=== PATIENT | female | born 1945 | race Caucasian/White ===

== ENCOUNTER 2017-11-17 17:21 | Inpatient (IN) | payer MEDICARE ==
--- NOTE | 2017-11-17 18:22 | RAD ---
LEFT ANKLE RADIOGRAPHS THREE VIEWS 11/17/17 PROVIDED CLINICAL HISTORY: Left ankle pain status post injury. FINDINGS: There is a displaced Macedo B distal fibular fracture with lateral displacement of the distal fracture fragment by about one shafts width. There is disruption of the ankle mortise with lateral displaceme nt of the talus with respect to the tibia. Avulsion fracture presumably from the medial malleolus is noted. There is no evidence for a posterior malleolar fracture. IMPRESSION: Distal fibular and medial malleolar fractures with associated disruption of the ankle mortise as abov e. POS: [facility]
[2017-11-17] MEDS ORDERED: Diprivan 20 ML ONE (18:50)
--- NOTE | 2017-11-17 20:12 | RAD ---
TWO VIEWS OF THE LEFT ANKLE 11/17/17 PROVIDED CLINICAL HISTORY: Post reduction. FINDINGS/IMPRESSION: Comparison is made with the examination performed earlier the same date. Interval placement of psychologist engineering ior splint material. The degree of medial ankle mortise widening is less conspicuous than on prior st udy. Additional significant interval change with respect to prior is not apparent. POS: [facility]
[2017-11-17 20:32] LABS: #Basophils 0.1 thou/uL (0.0-0.2); #Eosinphils 0.1 thou/uL (0.0-0.7); #Lymphocytes 1.6 thou/uL (1.20-3.40); #Monocytes 0.8 thou/uL (0.11-0.59); #Neutrophils 8.7 thou/uL (1.40-6.50); %Basophils 0.5 % (0.0-1.0); %Eosinophils 0.5 % (0.0-10.0); %Monocytes 6.9 % (0.0-10.0); Hemoglobin 14.7 g/dL (12.0-16.0); Mean Corpuscular HGB CONC 34.2 g/dL (32.0-36.0); Mean Corpuscular Hemoglobin 31.2 pg (27.0-31.0); Mean Corpuscular Volume 91.1 fl (81.0-99.0); Mean Platelet Volume 6.7 fL (7.4-10.4); Platelet Count 276 thou/uL (130-400); RBC Distribution Width 12.6 % (11.5-14.5); Red Blood Cell (RBC) Count 4.73 mill/uL (4.20-5.40); White Blood Cell (WBC) Count 11.1 thou/uL (4.8-10.8)
[2017-11-17 20:41] LABS: Anion Gap 20 mmol/L (10-20); BUN (Urea Nitrogen) 29 mg/dL (9.8-20.1); Calc. Creatinine Clearance 0 mL/min (70-130); Calcium 8.8 mg/dL (7.8-10.44); Carbon Dioxide 16 mmol/L (23-31); Chloride 105 mmol/L (98-107); Estimated GFR-MDRD 27; Glucose 103 mg/dL (83-110); Magnesium 2.9 mg/dL (1.6-2.6); Phosphorus 5.3 mg/dL (2.3-4.7); Potassium 4.3 mmol/L (3.5-5.1); Sodium 137 mmol/L (136-145)
[2017-11-17] MEDS ORDERED: CEFAZOLIN/Water 2 GM/20 ML SYRINGE SLOW IVP SCH (20:45)
--- NOTE | 2017-11-17 20:58 | CON ---
ORTHOPEDIC CONSULTATION NOTE DATE OF CONSULTATION: 11/17/2017 REQUESTING PHYSICIAN: Dr. Kodi Russell. PRINCIPAL DIAGNOSIS: Left ankle fracture. BRIEF HISTORY OF PRESENT ILLNESS: The patient is a pleasant 72-year-old lady, who earlier today sust ained a fall and twisting injury to her left ankle. This injury occurred at her home. She reports i mmediate pain and deformity. Upon arrival at [facility], x-rays were obtained that demonstrated a la teral malleolus fracture with lateral shift to the talus. An attempt at closed reduction was perform ed and the patient was placed in a splint and orthopedic consultation requested. She denies loss of consciousness. She denies striking her head at the time of the fall. PAST MEDICAL HISTORY: Remarkable for history of thyroidectomy. She does have a history of anxiety, depression. She also reports that at the time of surgery for thyroidectomy repair thyroid were excis ed. PAST SURGICAL HISTORY: Includes thyroidectomy and idiopathic parathyroid excision. Also history of finger laceration closure. MEDICATIONS: Clonazepam, Effexor, levothyroxine, calcium replacement. ALLERGIES: To PSEUDOEPHEDRINE. FAMILY HISTORY: Noncontributory. SOCIAL HISTORY: The patient is a nonsmoker. She does not drink alcohol and denies recreational drug use. REVIEW OF SYSTEMS: Denies recent fevers, chills or sweats. Denies chest pain or shortness of breath . Denies numbness or tingling in the lower extremity. PHYSICAL EXAMINATION: VITAL SIGNS: Temperature of 97.4 degrees Fahrenheit, pulse of 113, respiratory rate of 20, blood pre ssure 106/72. HEENT: Atraumatic, normocephalic. She has a well healed transverse scar at the anterior neck from h er prior thyroidectomy. HEART: Show regular rate and rhythm without murmur. LUNGS: Clear to auscultation bilaterally with good breath sounds. Chest wall is nontender. ABDOMEN: Soft and nontender. PELVIS: Stable. EXTREMITIES: Remarkable for a left lower extremity that currently is in a short leg posterior splint . She is able to wiggle her toes comfortably without significant pain. She has no pain with passive stretch. She has intact subjective sensation in the toe tips and good capillary refill. The knee a nd hip on that side are atraumatic. X-RAYS: Three-view ankle pre-reduction is remarkable for a Macedo B fracture of the lateral malleolus with lateral shift of the talus. A two-view x-ray of the ankle following reduction shows a minor im provement in the overall alignment felt to be acceptable for the time being as we are going to procee d with surgery tomorrow. Labs pending. ASSESSMENT: A 72-year-old lady status post twisting injury sustaining left lateral malleolus fractur e. PLAN: The patient will be admitted to the Trauma Service. We will plan on proceeding to the operati ng room for open reduction internal fixation of the lateral malleolus. Today, I discussed with the p atient the risks and benefits of the procedure. The risks include, but are not limited to bleeding, infection, nerve injury, DVT, PE, loss of limb or life. The patient appears to understand and does w klaudia to proceed.
--- NOTE | 2017-11-17 21:22 | HP ---
ATTENDING PHYSICIAN: Dr. Russell. CONSULTING PHYSICIAN: Dr. Akbar. DATE OF SERVICE: 11/17/2017 CHIEF COMPLAINT: Status post fall. HISTORY OF PRESENT ILLNESS: This is a 72-year-old female who reported that she just slipped and fell and rolled her ankle on the left, she has instant pain, it was swollen, tender ecchymotic. This dheeraj e, the patient was evaluated in the ER and was found to have a displaced fracture in the medial malle olus and lateral dislocation or mortise was disrupted. She denies any chest pain, shortness of breat h, headache, or dizziness prior or post-fall and is denying any fever or chills leading up to this ev ent. PAST MEDICAL HISTORY: None. PAST PSYCHIATRIC HISTORY: Depression. PAST SURGICAL HISTORY: Includes thyroidectomy and finger laceration repair. SOCIAL HISTORY: Denies any alcohol, drug or smoking history. MEDICATIONS: She currently uses Klonopin 0.5 mg p.o. p.r.n., anxiety; Effexor 150 mg p.o. daily; lev othyroxine 25 mcg p.o. daily; BuSpar 15 mg p.o. daily; Soma 250 mg p.o. daily p.r.n. REVIEW OF SYSTEMS: All 10-systems reviewed, otherwise stated in HPI were negative. PHYSICAL EXAMINATION: GENERAL: In no acute distress at this time. VITAL SIGNS: Blood pressure 153/93, heart rate 118, saturation 98% on 1 mL of oxygen. HEENT: Atraumatic, normocephalic. Pupils equal, round, reactive. CARDIOVASCULAR: S1, S2, regular rate and rhythm. NECK: No JVD, no masses. Trachea is midline. No cervical spine tenderness. RESPIRATORY: Clear bilaterally via auscultation. ABDOMEN: Soft, nontender, nondistended. EXTREMITIES: Left lower extremity splint in place. Moving of the toes is intact. Sensation is inta ct. Good cap refill. Right ankle is , positive pulses, no edema. NEUROLOGIC: GCS 15. A and O x4. LABORATORY VALUES: Pending. RADIOLOGIC FINDINGS: Of the left ankle, displaced fracture of the medial malleolus and dislocation o f mortise. ASSESSMENT: 1. Status post fall. 2. Left ankle fracture. 3. Acute traumatic pain. PLAN: Will be to obtain orthopedic consultation. Dr. Akbar already plans for surgery tomorrow. N.p.o. after midnight. We will place her on the surgical unit, continue to monitor IV fluids, pain m anagement, review her labs once available. The patient was discussed with Dr. Russell at bedside, se en the patient and agrees with the above plan.
[2017-11-17] MEDS ORDERED: Dextrose 50% Abboject 50 ML SYRINGE SLOW IVP PRN (21:50)
[2017-11-17] MEDS ORDERED: Dextrose 5% in Water 1,000 ML IV PRN (21:50)
[2017-11-17] MEDS ORDERED: Cyclobenzaprine 10 MG TAB PO PRN (21:50)
[2017-11-17] MEDS ORDERED: Ondansetron HCl/PF 4 MG/2 ML Vial IVP PRN (21:50)
[2017-11-17] MEDS ORDERED: Ondansetron ODT 4 MG TAB PO PRN (21:50)
[2017-11-17] MEDS ORDERED: traMADol HCl 50 MG TAB PO PRN (21:50)
[2017-11-17] MEDS ORDERED: Famotidine 20 MG TAB PO SCH (22:00)
[2017-11-17] MEDS: Sodium Chloride 0.9% 1,000 ML IV SCH (22:42)
[2017-11-17] MEDS: traMADol HCl 50 MG TAB PO PRN (22:43)
[2017-11-17 23:32] VITALS: BMI 28.0
[2017-11-18] MEDS ORDERED: Morphine 2 MG/ML SYRINGE SLOW IVP PRN (04:19)
[2017-11-18] MEDS: Morphine 2 MG/ML SYRINGE SLOW IVP PRN ×2 (04:34→08:21)
[2017-11-18 05:43] LABS: #Basophils 0.1 thou/uL (0.0-0.2); #Eosinphils 0.1 thou/uL (0.0-0.7); #Lymphocytes 2.3 thou/uL (1.20-3.40); #Monocytes 0.8 thou/uL (0.11-0.59); #Neutrophils 4.2 thou/uL (1.40-6.50); %Basophils 0.9 % (0.0-1.0); %Eosinophils 0.7 % (0.0-10.0); %Lymphocytes 30.5 % (21.0-51.0); %Monocytes 10.5 % (0.0-10.0); %Neutrophils 57.4 % (42.0-75.0); Hemoglobin 12.2 g/dL (12.0-16.0); Mean Corpuscular HGB CONC 33.6 g/dL (32.0-36.0); Mean Corpuscular Hemoglobin 30.4 pg (27.0-31.0); Mean Corpuscular Volume 90.4 fl (81.0-99.0); Mean Platelet Volume 6.6 fL (7.4-10.4); Platelet Count 246 thou/uL (130-400); RBC Distribution Width 12.4 % (11.5-14.5); Red Blood Cell (RBC) Count 4.02 mill/uL (4.20-5.40); White Blood Cell (WBC) Count 7.4 thou/uL (4.8-10.8)
[2017-11-18 06:00] LABS: Anion Gap 13 mmol/L (10-20); BUN (Urea Nitrogen) 23 mg/dL (9.8-20.1); Calc. Creatinine Clearance 45 mL/min (70-130); Calcium 8.4 mg/dL (7.8-10.44); Carbon Dioxide 27 mmol/L (23-31); Chloride 104 mmol/L (98-107); Estimated GFR-MDRD 41; Glucose 71 mg/dL (83-110); Potassium 4.2 mmol/L (3.5-5.1); Sodium 140 mmol/L (136-145)
[2017-11-18] MEDS: traMADol HCl 50 MG TAB PO PRN (07:31)
[2017-11-18] MEDS ORDERED: Ibuprofen 600 MG TAB PO PRN (08:23)
[2017-11-18] MEDS: Sodium Chloride 0.9% 1,000 ML IV SCH (08:33)
[2017-11-18] MEDS ORDERED: Famotidine 20 MG TAB PO SCH ×2 (09:00→21:00)
[2017-11-18] MEDS ORDERED: CEFAZOLIN/Water 2 GM/20 ML SYRINGE ONE (12:59)
[2017-11-18] MEDS ORDERED: Midazolam HCl 2 mg/2 ml Vial ONE (13:07)
[2017-11-18] MEDS ORDERED: Fentanyl 100 MCG/2 ML VIAL ONE (13:07)
[2017-11-18] MEDS ORDERED: Bupivacaine PF 0.5% 30 ML VIAL ONE (13:23)
[2017-11-18] MEDS ORDERED: Promethazine HCl 25 MG/ML VIAL IM PRN ×2 (14:30→14:44)
[2017-11-18] MEDS ORDERED: HYDROcodone/Acetaminophen 5/325 mg Tablet PO PRN ×2 (14:30)
[2017-11-18] MEDS ORDERED: traMADol HCl 50 MG TAB PO PRN ×2 (14:30)
[2017-11-18] MEDS ORDERED: Ropivacaine 0.2% 550 ML 550 ML NERVE BLCK SCH (14:30)
[2017-11-18] MEDS ORDERED: Ondansetron HCl/PF 4 MG/2 ML Vial IVP PRN ×2 (14:30→14:44)
[2017-11-18] MEDS ORDERED: Zolpidem Tartrate 5 MG TAB PO PRN (14:30)
[2017-11-18] MEDS ORDERED: Fentanyl 100 MCG/2 ML VIAL IV PRN (14:31)
[2017-11-18] MEDS ORDERED: Promethazine HCl 25 MG/ML VIAL SLOW IVP PRN (14:44)
[2017-11-18] MEDS ORDERED: Ropivacaine 0.5% HCl/PF (150 MG/30 ML VIAL) ONE (16:01)
[2017-11-18] MEDS ORDERED: Ropivacaine 0.2% HCl/PF (40 MG/20 ML VIAL) ONE (16:01)
--- NOTE | 2017-11-18 16:01 | RAD ---
FLUOROSCOPIC IMAGES OF THE LEFT ANKLE 11/18/17 INDICATION: History of dislocation of the left ankle. COMPARISON: Prior exam dated 11/17/17. FINDINGS: Since the comparison examination, there has been interval open reduction, internal fixation of the co mminuted fracture involving the lateral malleolus. Ankle mortise also demonstrates improved alignment . The hardware projects in the expected position. The total fluoroscopic time was 2.7 seconds. Total exposure was 0.40 mGy. IMPRESSION: Interval open reduction and internal fixation of the fracture or dislocation involving the left ankle . POS: [facility]
[2017-11-18] MEDS ORDERED: Ondansetron HCl/PF 4 MG/2 ML Vial ONE (16:13)
[2017-11-18] MEDS ORDERED: PHENYLEPHRINE-NS 100 MCG/ML 10 ML SYRINGE ONE (16:13)
[2017-11-18] MEDS ORDERED: Dexamethasone 20 MG/5 ML VIAL ONE (16:13)
--- NOTE | 2017-11-18 16:14 | OP ---
DATE OF SURGERY: 11/18/2017 PREOPERATIVE DIAGNOSIS: Left lateral malleolus fracture with lateral displacement. POSTOPERATIVE DIAGNOSIS: Left lateral malleolus fracture with lateral displacement. SURGICAL PROCEDURE: Open reduction internal fixation left lateral malleolus. ANESTHESIA: General. SURGEON: Priyank Akbar M.D. INDUSTRIAL RELATIONS REPRESENTATIVE: Stephen Rodriguez PA-C. TOURNIQUET TIME: Approximately 40 minutes at 300 mmHg. IMPLANTS: The Synthes 2.7/3.5 mm variable ankle trauma system was used. COMPLICATIONS: None. DRAINS: None. SPECIMEN: None. OUTCOME: Satisfactory. INDICATIONS: Patient is a pleasant 72-year-old lady, who is status post ground level fall at home, s ustaining a lateral malleolus fracture with lateral shift of the fracture and lateral displacement of the talus from within the mortise. After discussion with patient including risks and benefits, we d ecided to proceed with open reduction internal fixation. Informed consent has been obtained. I nithya berrios all questions answered. PROCEDURE IN DETAIL: After the induction of general anesthesia, the patient was positioned supine on the OR table then a sterile prep and drape was performed of the left lower extremity. The limb was then exsanguinated with Esmarch bandage, tourniquet inflated to 300 mmHg. Next, a lateral incision w as made over the distal fibula after skin was sharply incised, dissection was carried down bluntly ex posing the fracture and the lateral aspect of the distal fibula. The fracture hematoma was lavaged f rom the wound and then the fracture was reduced and held in place with bone tenaculum. An anterior t o posterior interfragmentary screw was applied in standard fashion and this was followed by placement of a 2.7/3.5 variable angle ankle lateral malleolar plate along the lateral cortex of the distal fib arabella. This was held in place with a 2.7 mm cortical screw and one in the slotted holes and then four 2.7 mm locking screws were applied distally and two additional 2.7 screws were applied proximally. T his resulted in anatomic alignment of the fracture with no lateral shift of the talus and no widening of the medial mortise as checked with AP lateral C-arm images. At the completion of this, wound was irrigated with normal saline and closed in layers with 0 Vicryl deep, followed by 2-0 Vicryl, and st aples for the skin. A Xeroform gauze, Webril, and fiberglass splint was applied to the ankle and the n the tourniquet was let down at completion of dressing. There were no complications. Patient nohelia ated the procedure well.
--- NOTE | 2017-11-18 18:34 | PRG ---
DATE OF SERVICE: 11/18/2017 ATTENDING PHYSICIAN: Dr. Tim Dewey. SUBJECTIVE: This is a 72-year-old female status post ground level fall with right ankle fracture. S he was admitted last night to the surgical floor. Dr. Akbar was consulted. Plans are to take pat ient to the OR later today. She describes her pain is well controlled. She has been n.p.o. since [facility] in anticipation of OR today. OBJECTIVE: VITAL SIGNS: Temperature 97.8, pulse 84, respirations 12, O2 saturation 97% on room air, blood press ure 122/80. GENERAL: Well-developed, well-nourished female in no acute distress. HEENT: Atraumatic, normocephalic. PULMONARY: Bilateral breath sounds clear. No respiratory distress. CARDIOVASCULAR: Regular rate and rhythm. Heart sounds normal. ABDOMEN: Soft, nontender, nondistended. EXTREMITIES: Left lower extremity with splint in place. Neurovascular intact and cap refill brisk, all extremities. NEUROLOGIC: GCS 15. Awake, alert, oriented x3. ASSESSMENT: 1. Status post ground level fall. 2. Left ankle fracture. PLAN: 1. To OR today with Dr. Akbar. 2. PT, OT evaluation and treatment after OR. 3. Antibiotics per Orthopedic Service. The patient was seen and examined with Dr. Dewey, who agrees with the assessment and plan.
[2017-11-18] MEDS: CEFAZOLIN/Water 2 GM/20 ML SYRINGE SLOW IVP SCH (20:59)
--- NOTE | 2017-11-18 23:07 | PRG ---
DATE OF SERVICE: 11/18/2017 SUBJECTIVE: This is a 72-year-old female status post fall, postoperative day #0 from ORIF of left an kle. The patient is doing well. Her pain is well controlled. No complaints at this time. OBJECTIVE: VITAL SIGNS: Remained stable. Physical exam is unremarkable from daily progress note. ASSESSMENT AND PLAN: 72-year-old female. We will continue care plan as stated in daily progress not e as well as continue to monitor and continue care. Discharge disposition pending.
[2017-11-19] MEDS: Sodium Chloride 0.9% 1,000 ML IV SCH ×2 (04:36→05:06)
[2017-11-19] MEDS: CEFAZOLIN/Water 2 GM/20 ML SYRINGE SLOW IVP SCH (05:06)
[2017-11-19] MEDS ORDERED: Enoxaparin Sodium 40 MG/0.4 ML SYRINGE SC SCH (09:00)
[2017-11-19 15:37] VITALS: BP 121/75; TEMP 98.2
--- NOTE | 2017-11-20 00:48 | DIS ---
DATE OF ADMISSION: 11/17/2017 DATE OF DISCHARGE: 11/19/2017 ADMITTING PHYSICIAN: Ezequiel Russell M.D. DISCHARGING PHYSICIAN: Tim Dewey DO CONSULTING PHYSICIAN: Priyank Akbar M.D. REASON FOR HOSPITALIZATION: Ground level fall with left ankle pain. HOSPITAL DIAGNOSIS: Left lateral malleolus fracture with lateral displacement. PROCEDURES: Open reduction internal fixation, left lateral malleolus. DATE OF SURGERY: 11/18/2017 SURGEON: Priyank Akbar M.D. CONDITION ON DISCHARGE: Good to home. BRIEF HISTORY OF HOSPITALIZATION: A 72-year-old female who had a ground level fall on 11/17/2017. S he reports that she rolled her ankle and fell. She was evaluated in the ER and a displaced fracture in the left lateral malleolus was identified. She was admitted to the hospital by Trauma Services. Dr. Priyank Akbar, Orthopedics, was consulted and took the patient to the OR for fixation of the f racture. On postoperative day #1, the patient was ambulatory with physical and occupational therapy with the use of a walker. There were no postoperative complications. Pain was well controlled. Jose e management was consulted for discharge planning. A DME was secured for the patient. The patient w as given clearance for discharge by Orthopedic Surgery. She was discharged by the Orthopedic Service . She is to follow up with the Orthopedics per their instructions. There is no need for followup wi Trauma Services. The patient was seen and examined with Dr. Dewey who agrees with the assessment and plan for discharg e.
== END 2017-11-19 15:42 | disposition home or self-care (01) | DRG 494 ==
LOC: ERS 17:21 → SJJU 21:48
PROVIDERS: ADMIT Surgery; ATTEND Surgery
PROC: 0QSH04Z Reposition Left Tibia with Internal Fixation Device, Open Approach (ICD-10-PCS; principal; 2017-11-18)
PROC: 8E0YXBF Computer Assisted Procedure of Lower Extremity, With Fluoroscopy (ICD-10-PCS; 2017-11-18)
DX: S82.52XA Displaced fracture of medial malleolus of left tibia, initial encounter for closed fracture (principal); S93.05XA Dislocation of left ankle joint, initial encounter; Z88.8 Allergy status to other drugs, medicaments and biological substances; W18.30XA Fall on same level, unspecified, initial encounter
CPT/HCPCS: 27762; 36415; 76001; 80048; 83735; 84100; 85025; 96374; A4306; C1713; G8978-GP-CM; G8979-GP-CK; G8987-GO-CK; G8988-GO-CI; J1100; J1650; J2250; J2270; J2405; J2704; J2795; J3010; S0020

== ENCOUNTER 2018-04-29 19:35 | Inpatient (IN) | payer MEDICARE ==
[~2018-04-29 19:35] MED LIST: ISOVUE-370 76%-LOCM 1 ML ONE
--- NOTE | 2018-04-29 20:06 | RAD ---
SINGLE VIEW OF THE CHEST: 04/29/18 COMPARISON: None. HISTORY: Multiple syncopal episodes for three weeks. FINDINGS: Single view of the chest shows a normal sized cardiomediastinal silhouette. There is no evidence of c onsolidation, mass, or pleural effusion. Degenerative changes are seen in the spine. IMPRESSION: No evidence of acute cardiopulmonary disease. POS: [facility]
[2018-04-29 20:22] LABS: #Lymphocytes 1.5 thou/uL (1.20-3.40); #Monocytes 0.5 thou/uL (0.11-0.59); #Neutrophils 3.6 thou/uL (1.40-6.50); %Basophils 0.1 % (0.0-1.0); %Eosinophils 0.1 % (0.0-10.0); %Monocytes 8.5 % (0.0-10.0); %Neutrophils 64.3 % (42.0-75.0); Hemoglobin 14.1 g/dL (12.0-16.0); Mean Corpuscular HGB CONC 33.7 g/dL (32.0-36.0); Mean Corpuscular Hemoglobin 29.8 pg (27.0-31.0); Mean Corpuscular Volume 88.4 fL (78.0-98.0); Platelet Count 254 thou/uL (130-400); RBC Distribution Width 12.9 % (11.5-14.5); Red Blood Cell (RBC) Count 4.72 mill/uL (4.20-5.40); White Blood Cell (WBC) Count 5.6 thou/uL (4.8-10.8)
[2018-04-29 20:45] LABS: ALT (SGPT) 13 U/L (8-55); AST (SGOT) 15 U/L (5-34); Albumin 4.3 g/dL (3.4-4.8); Alkaline Phosphatase 115 U/L (40-150); Anion Gap 14 mmol/L (10-20); BUN (Urea Nitrogen) 22 mg/dL (9.8-20.1); Bilirubin, Total 0.5 mg/dL (0.2-1.2); CK (CPK) 38 U/L (29-168); Calc. Creatinine Clearance 0 mL/min (70-130); Calcium 9.5 mg/dL (7.8-10.44); Carbon Dioxide 25 mmol/L (23-31); Chloride 105 mmol/L (98-107); Estimated GFR-MDRD 38; Globulin 2.8 g/dL (2.4-3.5); Glucose 90 mg/dL (83-110); Lipase 23 U/L (8-78); Potassium 4.1 mmol/L (3.5-5.1); Protein, Total 7.1 g/dL (6.0-8.3); Sodium 140 mmol/L (136-145)
[2018-04-29 20:48] LABS: CKMB 1.1 ng/mL (0-6.6); Troponin I Less than 0.010 ng/mL (< 0.028)
--- NOTE | 2018-04-29 21:06 | CT ---
CT OF THE BRAIN WITHOUT CONTRAST: 04/29/18 COMPARISON: None. HISTORY: Syncopal episodes for three weeks. TECHNIQUE: Multiple contiguous axial images were obtained in a CT of the brain without contrast. FINDINGS: There are scattered hypodensities in the subcortical and periventricular white matter, likely seconda ry to small vessel ischemic disease. No large confluent infarction is seen. There is no evidence of h ydrocephalus, intracranial hemorrhage or extra-axial fluid collection. The calvarium and overlying soft tissues are unremarkable. The visualized paranasal sinuses and masto id air cells are well aerated. IMPRESSION: No evidence of acute intracranial abnormality. POS: [facility]
[2018-04-29 21:09] LABS: Free T4 (Free Thyroxine) 1.77 ng/dL (0.70-1.48)
--- NOTE | 2018-04-29 21:23 | CT ---
CTA OF THE CHEST WITH CONTRAST 04/29/18 COMPARISON: None. HISTORY: Altered mental status and chest pain. Evaluate for pulmonary thromboembolism. TECHNIQUE: Multiple contiguous axial images were obtained in a CTA of the chest with contrast per pulmonary embo lism protocol. 3D oblique MIP reformats and direct coronal reformats were performed. FINDINGS: The pulmonary arteries are well opacified without filling defects to suggest pulmonary emboli. The he art is normal in size without focal cardiac abnormality. No hilar or mediastinal lymphadenopathy are seen. No suspicious pulmonary nodules are seen. No focal infiltrates are seen in the lungs. No pneumothorax or pleural effusion are present. Degenerative changes are seen in the spine. The visualized subdiaphragmatic structures are unremarkab le. The chest wall soft tissues are unremarkable. IMPRESSION: No evidence of pulmonary thromboembolism. POS: [facility]
[2018-04-30] MEDS ORDERED: Labetalol 100 MG/20 ML MDV SLOW IVP PRN (00:22)
[2018-04-30] MEDS ORDERED: Prevnar 13-Val Conj/PF 0.5 ML SYRINGE IM ONE (02:15)
[2018-04-30] MEDS ORDERED: clonazePAM 0.5 MG TAB PO PRN (09:47)
[2018-04-30] MEDS ORDERED: busPIRone HCl 10 MG TAB PO SCH (10:00)
[2018-04-30] MEDS ORDERED: Venlafaxine HCl XR 75 MG CAP PO SCH (10:00)
--- NOTE | 2018-04-30 10:17 | HP ---
DATE OF OBSERVATION: 04/29/2018 CHIEF COMPLAINT: Near syncopal episode. HISTORY OF PRESENT ILLNESS: The patient is a 72-year-old female who has been a poorly compliant nella ent of Dr. Mijares for the past 20 years, probably 25 years. She has a long history of hypothyroidis m and rarely coming to the doctor despite recommendations for regular blood work and care. This part icular incident began 3 weeks prior to arrival in the emergency room when she would have periods of w eakness and her legs would give way and she would fall. There was no actual loss of consciousness un til the fall associated with her the day prior to coming to the emergency room on 04/28/2018, which s he states she had gone walking her dog, she gotten fairly overheated. She came back to her house, wa s standing by the sink and her legs gave way. Her ex- found her on the floor. She said she h ad a knot on the back of her head and a broken plate. She then had near syncopal episodes for severa l weeks prior to this and describes them as when her legs would get so weak as if we want to give way . She come in earlier in the year for evaluation of weakness and depression and was lost to follow u p. She complains of chronic exhaustion, tiredness, depression and constipation. She was noted in e emergency room to have a fast heart rate and her TSH was so low. It indicated that she was overmed icated with her thyroid medication. Also, she was dosing her antidepressant - Effexor at a dose beyo nd the recommended range and the side effects of which may be contributing to her symptomatology. e reports that she cannot go over many places without severe nausea and emesis. 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 She has had a sleep study in 2016, which failed to show any abnormalities. PAST SURGICAL HISTORY: Includes thyroidectomy, surgical repair of left ankle fracture in 10/2017. PAST PSYCHIATRIC HISTORY: Includes the aforementioned major treatment resistant to depression with s uicide ideations, anxiety. SOCIAL HISTORY: Denies alcohol and drug use. She is currently , but lives with her . ALLERGIES: She has abnormal reaction to PSEUDOEPHEDRINE. MEDICATIONS ON ADMISSION: Include levothyroxine, which she takes 100 mcg daily. She also takes magn esium 800 mg a day, Benadryl 25 mg at bedtime, buspirone 10 mg 1-2 tabs daily, Effexor XR 150 mg 2 ta bs once a day, clonazepam 0.5 mg usually 1-2 tabs as needed for anxiety. REVIEW OF SYSTEMS: General: She denies chills and fever, but admits to chronic ongoing weakness and constipation. Eyes: Denies blurred vision, double vision, painful reaction to light. EENT: Denie s drainage, sores or irritation. Neck: Denies painful range of motion or edema, swelling, enlarged nodes. Cardiovascular: Denies pain, palpitations. Respiratory: Denies shortness of breath, cough. Gastrointestinal: Has chronic constipation, also associated nausea with her frequent episodes of e mesis. Genitourinary: Denies dysuria or blood in urine or stool, but has horrible chronic constipat ion. Musculoskeletal: Reports weakness in her lower extremities and has had a recent fractured fall and fracture of her left ankle. Endocrine: Long-term history of thyroid disease, but denies edema, hot flashes. Psychiatric: Has ongoing chronic depression despite treatment. Skin: No new rashes or lesions. Neurologic: Denies headaches, has had recent trauma. PHYSICAL EXAMINATION: VITAL SIGNS: Blood pressure 167/90 with a pulse of 104, temperature 97.7, O2 sat 96% on room air, re spiratory rate 12. GENERAL: Well-developed, well-nourished elderly female, alert, oriented, cooperative, no obvious sig ns of anxiety or tremor, diaphoresis, is in no acute distress. HEENT: Normocephalic and atraumatic. Pupils equal, round, and reactive to light. Extraocular muscl es are intact. Arcus senilis bilaterally. TMs, nares, pharynx are clear. NECK: Supple, trachea midline, no mass. CHEST: Clear to auscultation. BREAST: Deferred. BACK: Nontender. Normal range of motion and curvature. HEART: Regular rate and rhythm, no audible murmur. ABDOMEN: Soft, nontender, without organomegaly. GENITOURINARY: Deferred. EXTREMITIES: Without clubbing, cyanosis, or edema. Normal range of motion present. Well-healed lef t ankle scar noted. SKIN: Without acute rashes or lesions. NEUROLOGIC: Cranial nerves are intact. Mental status is clear. Sensory exam is intact. Unable to test gait and cerebellar function at this time. LABORATORY DATA AND IMAGING: Shows WBCs at 5.6, hemoglobin 14.1, hematocrit 41.7 with platelets at 2 54. Sodium 140, potassium 4.1, chloride 105, CO2 25, BUN 22, creatinine 1.37 with a GFR of 38. Live r functions normal. Cardiac enzymes normal. TSH at 0.01 and an elevated free T4 of 1.77. Chest x-r ay unremarkable. CT angiogram of the chest failed to show any PE despite elevated D-dimer of 0.51. ASSESSMENT: 1. Syncopal episode, etiology has yet to be determined. 2. Multiple near syncopal episodes, possibly due to adverse reaction to Effexor. 3. Thyroid overmedication. Patient clinically does not have thyrotoxicosis. 4. 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 5. Poor medical compliance. PLAN: Due to the patient's unwillingness for outpatient care, we are using this opportunity under ob servation status to evaluate the patient's reason for falling both from an arrhythmia/cardiac standpo int and/or any other neurological possibilities. Therefore, a consultation to Cardiology and Neurolo gy are requested. We will hold off her thyroid medication and lower her Effexor dosing and possibly even wean her completely off of it since she has had so many side effects and frankly has not adequat dana treated her depression. We will serially reevaluate her.
[2018-04-30] MEDS ORDERED: Calcium Carbonate + Vit D 1 TAB PO SCH (11:45)
[2018-04-30] MEDS ORDERED: Magnesium Oxide 400 MG TAB PO SCH (11:45)
--- NOTE | 2018-04-30 11:46 | MRI ---
BRAIN MRI WITHOUT CONTRAST: HISTORY: Syncope. COMPARISON: None. TECHNIQUE: Brain MRI is performed without intravenous Gadolinium administration. Multisequential, multiplanar i maging is performed. FINDINGS: No hemorrhage on the axial gradient echo sequence. Calvarium has a normal T1 marrow signal intensity. Midline brain parenchymal structures are unremark able. No parenchymal mass, mass effect, or midline shift. Brain volume is age appropriate. Cortical carrasco- white matter differentiation is preserved. The ventricles and sulci are patent and symmetric. T2 and FLAIR white matter hyperintensities due to chronic small-vessel ischemic changes are noted. Minimal opacification of bilateral mastoid air cells and minimal mucosal thickening of the ethmoid ai r cells. The central arterial flow voids are maintained. Absent restricted diffusion. IMPRESSION: 1. Absent restricted diffusion. No acute infarct. 2. Chronic small-vessel ischemic changes of white matter are present. POS: [facility]
[2018-04-30] MEDS: Calcium Carbonate + Vit D 1 TAB PO SCH ×3 (14:50→21:58)
--- NOTE | 2018-04-30 15:19 | CON ---
DATE OF CONSULTATION: 04/30/2018 CHIEF COMPLAINT: Syncope. HISTORY OF PRESENT ILLNESS: Patient is a very talkative lady. She is 72 years old and right handed. I have reviewed her ER provider report as well as H and P and the patient reports she is very active and athletic. 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 She has a history of thyroid surgery that was done years ago and she had a long description about how even her parathyroid glands were taken out, and she reports during that time she was having severe carpopedal spasm and feels she was best managed at that time, and subsequently, she has been on calcium for a very long time and she sees her primary care doctor, Dr. Hodges. The patient reports she has been having intermittent episodes of vomiting and throwing up. She has thrown up at various stores sometimes when she goes there and she also has dry heaving and she does not know why she has these GI symptoms. In addition to that, she has been falling on and off and her knees would give way. On 04/28/2018, felt lightheaded and passed out. She had had intermittent episodes where she would feel like she is faint and she would sit down. She has never passed out before this event. No seizure-like symptoms were noted by her family and she has been tired and has had constipation and depression as well and she has elevated heart rate and she has been on antidepressants, and per chart, she has been taking more Effexor than the recommended range. PAST MEDICAL HISTORY: As noted, she has had parathyroid gland removal when she underwent thyroidectomy and she has been on thyroid replacement for a long time. She has had major depression, constipation, and chronic insomnia, and sleep study in 2016. I do not see any results of that study in the chart. PREVIOUS SURGICAL HISTORY: Thyroidectomy, and she reports they also did a parathyroidectomy during that surgery, and she had a left ankle fracture in 2017 and was repaired. SOCIAL HISTORY: She does not drink or smoke. 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 MEDICATIONS: Outside medication list was reviewed. She is on buspirone, levothyroxine, Effexor, and clonazepam. REVIEW OF SYSTEMS: Pulmonary: Normal. No shortness of breath. Gastrointestinal: Positive for nausea and vomiting. Genitourinary: Negative for dysuria or any bladder issues. Neurological: Negative for any seizures or weakness. Cardiac: Positive for increased heart rate. ENT: Negative for any tinnitus or dizziness. Endocrine: Positive for thyroid dysfunction. Psychiatric: Positive for depression. LABORATORY WORKUP: White count 5.6, hemoglobin 14.1, hematocrit 41.7, platelet count 254. Sodium 140, potassium 4.1, chloride 105, bicarbonate 25, BUN 22, creatinine 1.37, AST 15, ALT 13, alkaline phosphatase 115. CPK 38, CK-MB 1.1, and free T4 is 1.77, TSH 0.010,7 and also her D-dimer was 0.51; and her workup so far, her CT of the head was negative for any acute intracranial abnormalities , and CTA of the chest and thorax shows no evidence of pulmonary embolism, and echocardiogram is pending. PHYSICAL EXAMINATION: VITAL SIGNS: Blood pressure 130/75, pulse rate is 94, temperature 98, respiratory rate 16, O2 sats 96. GENERAL APPEARANCE: A thin built, well-nourished lady, who is very pleasant. CHEST: Clear vesicular breathing. CARDIOVASCULAR: S1 and S2 heard, no murmurs. ABDOMEN: Soft, nontender, no organomegaly noted. NEUROLOGICAL: Higher intellectual functions, normal orientation to time, place , person and appropriate conversation. Cranial nerves II-XII normal extraocular movements. Pupils are reactive to light bilaterally at 2 mm and normal sensation of face bilaterally. She has mild facial asymmetry with the flattening of nasolabial fold on the left side. Normal hearing bilaterally. Tongue midline, no atrophy noted and normal elevation of palate bilaterally. MOTOR: Bulk normal, tone normal, strength 5/5 in upper and lower extremities in iliopsoas, hamstrings, quadriceps, ankle dorsiflexion, plantar flexion, deltoid, biceps, triceps, wrist extension/flexion, finger extension/flexion bilaterally. Deep tendon reflexes are 2+ throughout.Sensory exam normal to touch, pinprick, proprioception, vibration, and temperature bilaterally. Gait not tested. IMPRESSION: The patient is a 72-year-old lady with thyroid dysfunction, which seems to be her primary issue and she has been having intermittent episodes of feeling weak in her knees and falling, and she also had this event where she passed out, but she is very active outdoors and this could be a syncope-like event due to dehydration or other factors. Her neurological examination is normal except for mild flattening of nasolabial fold. Differential diagnosis includes cardiogenic syncope versus orthostatic hypotension. I do not think the description of this event sounds like a seizure. RECOMMENDATIONS: I would like to go ahead and get an MRI of the brain to make sure we were not missing any other phenomena or intracranial space-occupying lesion. Please check orthostatics. I will follow up with you tomorrow. Thank you for requesting this consultation. HAROON
--- NOTE | 2018-04-30 16:09 | CON ---
DATE OF CONSULT: 04/30/18 HISTORY OF PRESENT ILLNESS: The patient is a pleasant 72-year-old woman who presents after losing consciousness and suffering a fall. The patient states that she had been feeling weak and fatigued for the past year. In 10/2004, the patient had a fall and suddenly broke her ankle. She states she did not lose consciousness. The patient subsequently had several falls which she states once again she never lost consciousness. These always occurred while the patient had been standing. The patient yesterday was walking, got out of a chair and suddenly fell and lost consciousness. She denied having prodromal symptoms. The patient did not lose control of her bladder or bowel. The patient did not have any chest pain, denies any chest discomfort or dyspnea. PAST MEDICAL HISTORY: Thyroid disorder and depression,. PAST SURGICAL HISTORY: Thyroidectomy and parathyroidectomy. SOCIAL HISTORY: She is a nonsmoker. MEDICATION: Magnesium four tablets b.i.d., Buspar three tablets p.o. at bedtime , Venlafaxine 2 tablets daily, Synthroid 137 mcg, clonazepam 2 mg at bedtime. Effexor, Klonopin. FAMILY HISTORY: Positive family history of heart disease. Father had a myocardial infarction. SOCIAL HISTORY: Nonsmoker. ALLERGIES: PSEUDOPHEDRINE.. REVIEW OF SYSTEMS: Increasing fatigue. She denies any bright red blood per rectum, hematuria, dysuria. Ten-point system otherwise unremarkable. PHYSICAL EXAMINATION: GENERAL: This is a well-developed woman in no acute distress. Alert and oriented times three. VITAL SIGNS: Blood pressure was 125/76 sitting, 128/79 standing and 130/75 supine. NECK: No jugular venous distention, no carotid bruits. LUNGS: Clear to auscultation. HEART: Regular rate and rhythm, normal S1, S2, no murmurs. ABDOMEN: Nondistended. EXTREMITIES: Showed trace edema. SKIN: Warm and dry. NEUROLOGIC: Nonfocal. VASCULAR: Radial pulses are 2+. LABORATORY: Sodium 140, potassium 4.1, chloride 105, bicarbonate 25, BUN 22, creatinine is 1.37, troponin is less than 0.01. Her white blood cell count was 5.6, hemoglobin 14.1, hematocrit 41.7, platelets are 254. EKG revealed sinus tachycardia, nonspecific ST abnormality. IMPRESSION: 1. Syncope possibly orthostatic 2. Depression. 3. Hypothyroidism. This patient has had multiple falls and has had one clear syncopal episode. It is unlikely this patient has an arrhythmia. I expect she has normal left ventricular systolic function. We will check the patient's echocardiogram.. We will try to minimize the patient's anti-depression medications. We will follow this patient with you through her hospitalization. HAROON
[2018-04-30] MEDS: Magnesium Oxide 400 MG TAB PO SCH ×2 (19:51→21:58)
[2018-04-30] MEDS: busPIRone HCl 10 MG TAB PO SCH ×2 (19:52→21:57)
[2018-05-01 08:51] LABS: #Lymphocytes 2.3 thou/uL (1.20-3.40); #Monocytes 0.7 thou/uL (0.11-0.59); #Neutrophils 3.5 thou/uL (1.40-6.50); %Basophils 0.4 % (0.0-1.0); %Eosinophils 0.1 % (0.0-10.0); %Lymphocytes 35.3 % (21.0-51.0); %Neutrophils 54.2 % (42.0-75.0); Hemoglobin 13.1 g/dL (12.0-16.0); Mean Corpuscular HGB CONC 33.8 g/dL (32.0-36.0); Mean Corpuscular Volume 88.6 fL (78.0-98.0); Mean Platelet Volume 6.3 fL (7.4-10.4); Platelet Count 236 thou/uL (130-400); RBC Distribution Width 12.8 % (11.5-14.5); Red Blood Cell (RBC) Count 4.36 mill/uL (4.20-5.40); White Blood Cell (WBC) Count 6.5 thou/uL (4.8-10.8)
[2018-05-01] MEDS ORDERED: busPIRone HCl 10 MG TAB PO SCH (09:00)
[2018-05-01 09:02] LABS: Anion Gap 10 mmol/L (10-20); BUN (Urea Nitrogen) 13 mg/dL (9.8-20.1); Calc. Creatinine Clearance 53 mL/min (70-130); Calcium 9.1 mg/dL (7.8-10.44); Carbon Dioxide 27 mmol/L (23-31); Chloride 106 mmol/L (98-107); Estimated GFR-MDRD 58; Glucose 90 mg/dL (83-110); Sodium 139 mmol/L (136-145)
[2018-05-01] MEDS: Calcium Carbonate + Vit D 1 TAB PO SCH ×3 (09:14→20:18)
[2018-05-01] MEDS: Magnesium Oxide 400 MG TAB PO SCH ×2 (09:14→20:17)
[2018-05-01] MEDS ORDERED: hydrOXYzine 25 MG TAB PO PRN (10:49)
[2018-05-01] MEDS: Midodrine HCl 5 MG TAB PO SCH ×2 (14:38→20:18)
[2018-05-01] MEDS: busPIRone HCl 10 MG TAB PO SCH (20:18)
[2018-05-02] MEDS ORDERED: Sodium Chloride 0.9% 10 ML ONE (08:22)
[2018-05-02] MEDS ORDERED: Venlafaxine HCl XR 150 MG CAP PO SCH (09:00)
[2018-05-02] MEDS: Calcium Carbonate + Vit D 1 TAB PO SCH ×3 (09:36→20:22)
[2018-05-02] MEDS: Midodrine HCl 5 MG TAB PO SCH ×3 (09:36→20:23)
[2018-05-02] MEDS: Magnesium Oxide 400 MG TAB PO SCH ×2 (09:36→20:22)
[2018-05-02] MEDS: busPIRone HCl 10 MG TAB PO SCH (20:22)
[2018-05-03] MEDS ORDERED: Venlafaxine HCl XR 75 MG CAP PO SCH (09:00)
[2018-05-03] MEDS: Midodrine HCl 5 MG TAB PO SCH ×3 (09:04→20:50)
[2018-05-03] MEDS: Magnesium Oxide 400 MG TAB PO SCH ×2 (09:04→20:51)
[2018-05-03] MEDS: Calcium Carbonate + Vit D 1 TAB PO SCH ×3 (09:05→20:52)
[2018-05-03] MEDS: Citalopram 20 MG TAB PO SCH (09:05)
--- NOTE | 2018-05-03 15:56 | PDOC.CTH ---
<Daisy Brewster - Last Filed: 05/03/18 15:41> Cardiology Progress Note - Subjective Feeling better. Has strong suspicion that all her symptoms are related to Effexor. She was able to shower and move around today with less symptoms .Continues to have heart racing when OOB No new cardiac concerns or complaints - Objective Vital Signs Temp Pulse Resp BP BP BP BP 05/03/18 11:05 97.8 F 93 16 140/79 05/03/18 07:37 97.6 F 147 H 16 05/03/18 07:32 97.6 F 147 H 16 103/73 05/03/18 07:26 105 H 130/87 05/03/18 07:25 91 185/91 H 05/03/18 05:19 113/75 05/03/18 04:00 97.7 F 88 16 175/100 H Pulse Ox 05/03/18 11:05 98 05/03/18 07:37 05/03/18 07:32 98 05/03/18 07:26 05/03/18 07:25 05/03/18 05:19 05/03/18 04:00 93 L Admit Weight 146 lb 9.6 oz Weight 147 lb 4.301 oz 05/02/18 05/03/18 05/04/18 06:59 06:59 06:59 Intake Total 950 600 Balance 950 600 - Physical Examination General/Neuro: alert & oriented x3, NAD Neck: no JVD present Lungs: unlabored respirations Heart: RRR Abdomen: NT/ND, soft - Telemetry Telemetry Rhythm: NSR, Sinus tachycardia - Labs Result Diagrams: 05/01/18 08:17 05/01/18 08:17 Troponin/CKMB CK-MB (CK-2) 1.1 ng/mL (0-6.6) 04/29/18 20:08 Troponin I Less than 0.010 ng/mL (< 0.028) 04/29/18 20:08 - Assessment/Plan 1. POTS- HR went from 91 supine to 147 standing 2. Orthostatic hypotension, BP supine 185/91- standing 103/73, now on midodrine 3. Hyperthyroidism 4. Depression Wear zachery hose (preferably thigh high) while OOB. Continue midorine. Promote staying hydrated with adequate salt intake. May get abdominal binder for additional vascular support. Continue to check orthostatic BPs daily. <Jack Feliz - Last Filed: 05/04/18 16:19> Cardiology Progress Note - Objective Vital Signs Temp Pulse Resp BP BP BP BP 05/04/18 12:00 97.7 F 81 18 134/71 05/04/18 08:00 98 F 98 16 142/74 H 86/52 L 148/70 H Pulse Ox 05/04/18 12:00 97 05/04/18 08:00 98 Admit Weight 146 lb 9.6 oz Weight 144 lb 6.444 oz 05/03/18 05/04/18 05/05/18 06:59 06:59 06:59 Intake Total 600 1400 Balance 600 1400 - Labs Result Diagrams: 05/01/18 08:17 05/01/18 08:17 Troponin/CKMB CK-MB (CK-2) 1.1 ng/mL (0-6.6) 04/29/18 20:08 Troponin I Less than 0.010 ng/mL (< 0.028) 04/29/18 20:08 Attending Addendum - Attending Addendum Date/Time: 05/04/18 9984 I personally evaluated the patient and discussed the management with Ms Brewster. I agree with the History, Examination, Assessment and Plan documented above with any addition or exceptions noted below.
[2018-05-03] MEDS: busPIRone HCl 10 MG TAB PO SCH (20:52)
--- NOTE | 2018-05-04 01:51 | CON ---
DATE OF CONSULTATION: 05/02/2018 REFERRING PHYSICIAN: Buck Lowry M.D. REASON FOR CONSULTATION: Syncope and collapse. HISTORY OF PRESENT ILLNESS: Ms. Jung is a pleasant 72-year-old woman, who presented to the [facility] after suffering a fall and loss of conscious. She does endorse having multiple falls in the past and has been feeling weak and fatigued for over a year. With her prior falls, she denies having loss of conscious, but reports that these falls have occurred abruptly and even resulted in broken bones. However, most recently the patient was stood up and was walking around, at which point she suddenly fell and lost consciousness. She denies any heart racing, palpitations or dizziness preceding this episode and did not have any loss of bowel or bladder control upon awakening. She is currently feeli ng well. She denies any heart racing, palpitations, chest pain, pressure, stroke or stroke-like symp toms. She denies any heart failure symptoms of increasing shortness of breath or weight gain or swel ling of the extremities. REVIEW OF SYSTEMS: Twelve-point review of systems was conducted and is negative except that listed a jaimie in the HPI. Positive for fatigue. Positive for recent passing out and low energy levels. PAST MEDICAL HISTORY: Positive for thyroid disorder and depression. PAST SURGICAL HISTORY: Thyroidectomy and parathyroidectomy. SOCIAL HISTORY: Negative for tobacco and drug use. HOME MEDICATIONS: Magnesium b.i.d., BuSpar 3 tabs p.o. at bedtime, clonazepam 2 tabs p.o. at bedtime , calcium with vitamin D 1 tab p.o. t.i.d., venlafaxine 2 tabs p.o. daily and levothyroxine 137 mcg d aily. PHYSICAL EXAMINATION: VITAL SIGNS: Temperature 97.8, heart rate 98, respirations 18, oxygen is 97% on room air, blood pres sure 149/90. Orthostatic blood pressure performed on 05/02/2018, systolic blood pressure went from 1 42 lying to 106 standing, and heart rate 90s recumbent and 130s upright. GENERAL: This is a well-developed woman, in no apparent distress. She is alert and oriented. Her s peech is clear. Affect is appropriate. HEENT: Normocephalic, atraumatic. Her sclerae are anicteric. NECK: Supple without jugular venous distention. LUNGS: Clear to auscultation bilaterally without wheezes, crackles or rhonchi. CARDIOVASCULAR: Her heart rate is with normal S1, S2 and no significant murmurs. EXTREMITIES: Warm and dry to touch without clubbing, cyanosis. There is trace edema bilaterally. ABDOMEN: Soft, nontender without palpable masses and hepatojugular reflux is negative. NEUROLOGIC: Grossly intact and nonfocal and gait was not assessed. LABORATORY DATA: Hematology is unremarkable. Chemistry was unremarkable. Creatinine 0.95. Electro lytes are all within normal limits. TSH is 0.01, free T4 is 1.77. Echocardiogram on 04/30/2018, eje ction fraction estimated at 55% to 60%, some diastolic dysfunction is seen. All telemetry and EKG tracings were personally reviewed revealing sinus rhythm with occasional ectopy , atrial ectopic beats, paroxysmal episodes of sinus tachycardia with heart rate suddenly jumping to the 130-140 beat per minute range are seen and do correlate with the patient standing up and walking. IMPRESSION: 1. Syncope and collapse on 04/29/2018 with a history of multiple falls, but only one clear syncopal episode. 2. Orthostatic hypotension. 3. Preserved left ventricular ejection fraction of 55% to 60% by echocardiogram this hospitalization . 4. Postural orthostatic hypotension and tachycardia. 5. History of iatrogenic hyperthyroidism and parathyroidectomy. PLAN: 1. Agree with addition of midodrine. 2. Avoid dehydration. 3. Recommend compression stockings and MIGDALIA hose for vascular support. Thank you for allowing us to participate in the care of this patient. We will continue to follow and monitor the patient through her hospitalization. This report is dictated as scribe for Dr. Jack Feliz.
[2018-05-04] MEDS: Magnesium Oxide 400 MG TAB PO SCH ×2 (08:57→20:42)
[2018-05-04] MEDS: Midodrine HCl 5 MG TAB PO SCH ×3 (08:57→20:42)
[2018-05-04] MEDS: Citalopram 20 MG TAB PO SCH (08:58)
[2018-05-04] MEDS: Calcium Carbonate + Vit D 1 TAB PO SCH ×3 (08:58→20:41)
[2018-05-04] MEDS ORDERED: Venlafaxine XR 37.5 MG CAP PO SCH (09:00)
--- NOTE | 2018-05-04 10:19 | PRG ---
DATE OF SERVICE: 05/04/2018 SUBJECTIVE: Ms. Jung seems to be doing fair. She complains of fatigue, but not marked dizziness even when she is standing up and blood pressure is low. OBJECTIVE DATA: VITAL SIGNS: Blood pressure is 142/74 sitting, 140/70 supine, but drops to 86/50 after 5 minutes of standing, heart rate was increased to 140s-150s from the baseline pulse rate of 98, temperature 98 de grees Fahrenheit, respiration rate 18, oxygen saturation is adequate 98%. GENERAL: This is an alert and oriented woman in no apparent distress. NECK: Supple. Jugular veins not distended. CHEST: Coarse, no crackles. CARDIOVASCULAR: Heart sounds are regular to rate and rhythm. No murmur or gallop. ABDOMEN: Benign. Bowel sounds positive. EXTREMITIES: Lower extremities without edema, clubbing or cyanosis. Telemetry strips reveal sinus rhythm with occasional sinus tachycardia on standing upright for a whil e. LABORATORY DATA: None new. ASSESSMENT AND PLAN: Ms. Jung is a 72-year-old woman with prior history of hypoparathyroidism on replacement. She has a normal heart function. Echocardiogram reveals no abnormalities. She is know n to have significant fatigue and also severe orthostasis, likely cause of her presenting syncope. S he also has some tachycardia is upright position. I discussed treatment options. At this point she is on midodrine, so far no drastic change seen. Fu rther increases on midodrine could be a possibility, but also we could consider adding Florinef. Alt ernatively pyridostigmine could be also tried. In the meantime supportive measures like support [employer] and abdominal girdle is ordered. On the other hand, she is minimally symptomatic at this time. Could consider outpatient management as well in the near future. Of note, venlafaxine has been decreased by Dr. Hodges.
[2018-05-04] MEDS: busPIRone HCl 10 MG TAB PO SCH (20:42)
[2018-05-04] MEDS ORDERED: Temazepam 15 MG CAP PO SCH (21:00)
[2018-05-05] MEDS: Midodrine HCl 5 MG TAB PO SCH ×3 (11:02→21:56)
[2018-05-05] MEDS: Magnesium Oxide 400 MG TAB PO SCH ×2 (11:03→21:57)
[2018-05-05] MEDS: Citalopram 20 MG TAB PO SCH (11:04)
[2018-05-05] MEDS: Calcium Carbonate + Vit D 1 TAB PO SCH ×3 (11:04→21:56)
[2018-05-05] MEDS: Fludrocortisone Acetate 0.1 MG TAB PO SCH (11:04)
--- NOTE | 2018-05-05 11:45 | PRG ---
DATE OF SERVICE: 05/05/2018 SUBJECTIVE: Ms. Jung seemed to be doing very much the same. She does not get markedly dizzy, even though there is a significant fluctuation with her blood pressure. OBJECTIVE: VITAL SIGNS: Current blood pressure 160/83 from yesterday afternoon. There was a full orthostatic measurements documented blood pressure down to 103/69 standing from 134/71 supine. This is already improving compared to before. LABORATORY DATA: None new ordered. Telemetry strip reveals sinus rhythm with occasional episode of sinus tachycardia on standing. ASSESSMENT AND PLAN: Ms. Jung is a 72-year-old woman with history of syncope on presentation versus marked orthostatic hypotension. Echocardiogram revealed no LV dysfunction. At this point, I would continue the current management, continue midodrine, seems to be improved her orthostatic blood pressure numbers, also added Florinef as well. Venlafaxine was also reduced, possibly also contributing to the orthostatic hypotension. She also uses support stockings, an abdominal girdle has been ordered. I would attempt to mobilize her with PT, OT and if she remains stable, she could be considered to be followed as an outpatient. If the above measures fail we could consider pyridostigmine as an alternative medication to her condition. Also digoxin could be considered for heart rate lowering if the palpitation symptoms predominant, but at this point I did not find them so. HAROON
[2018-05-05 12:51] VITALS: BMI 24.7
--- NOTE | 2018-05-05 15:42 | PQF ---
CLINICAL DOCUMENTATION IMPROVEMENT CLARIFICATION FORM: ICD-10 Updated PLEASE DO AN ADDENDUM TO THE PROGRESS NOTE WITH ANY DOCUMENTATION UPDATES OR ADDITIONS AND CARRY THROUGH TO DC SUMMARY. THANK YOU. DATE: 05/05/18 ATTN: Dr. Hodges Please exercise your independent, professional judgment in responding to the clarification form. Clinical indicators are provided on the bottom of this form for your review Please check appropriate box(s): Syncope Due to: [ ] Hypothyroidism due to adverse effect of thyroid medication not taken as prescribed. [ ] Adverse effect of Effexor (antidepressant) not taken as prescribed. [ x ] Orthostatic hypotension [ x ] Other diagnosis ___Adverse effect of Effexor, taken as prescribed [ ] Unable to determine In addition, please specify: Present on Admission (POA): [ x ] Yes [ ] No [ ] Unable to determine For continuity of documentation, please document condition throughout progress notes and discharge summary. Thank You. CLINICAL INDICATORS - SIGNS / SYMPTOMS / LABS H&P 04/29: CHIEF COMPLAINT: NEAR SYNCOPAL EPISODE SHE WAS NOTED IN THE ER TO HAVE A FAST HEART RATE & HER TSH WAS SO LOW. IT INDICATED THAT SHE WAS OVERMEDICATED W/ HER THYROID MEDICATION. ALSO, SHE WAS DOSING HER ANTIDEPRESSANT - EFFEXOR AT A DOSE BEYOND THE RECOMMENDED RANGE & THE SIDE EFFECTS OF WHICH MAY BE CONTRIBUTING TO HER SYMPTOMATOLOGY. TSH AT 0.01 & AN ELEVATED FREE T4 OF 1.77 RISKS: H&P 04/29:72 YR OLD. SHE HAS LONG HISTORY OF HYPOTHYROIDISM & RARELY COMING TO THE DOCTOR DESPITE RECOMMENDATIONS FOR REGULAR BLOOD WORK & CARE. SHE COME IN EARLIER IN THE YR FOR EVALUATION OF WEAKNESS & DEPRESSION & WAS LOST TO FOLLOW UP. PMH: LONG TIME MAJOR DEPRESSION RESISTANT TO TREATMENT; GENERAL MEDICAL NONCOMPLIANCE, CHRONIC INSOMNIA. TREATMENT: PN 05/04: WEAN OFF EFFEXOR. ORDER 04/30: EFFEXOR XR 225 MG PO; ORDER 05/01 EFFEXOR XR 150 MG PO; ORDER 05/02 EFFEXOR XR 75 MG PO; 05/03 EFFEXOR XR 37.5 MG PO DAILY; ORDER 05/04 DC EFFEXOR AFTER TODAY'S DOSE. (This form is maintained as a part of the permanent medical record) 2014 [employer] All Rights Reserved Jyoti Betancourt RN, BSN [email or web address] Office: [phone] [facility]
[2018-05-05] MEDS ORDERED: hydrOXYzine 25 MG TAB PO SCH (21:00)
[2018-05-05] MEDS: busPIRone HCl 10 MG TAB PO SCH (21:56)
[2018-05-06 00:45] LABS: Bilirubin Negative (Negative); Blood, Urine Negative (Negative); Clarity CLEAR (Clear); Glucose, Urine (Dipstick) Negative (Negative); Leukocyte Negative (Negative); Nitrite Negative (Negative); Protein, Urine (Dipstick) Negative (Neg-Trace); Specific Gravity, Urine 1.007 (1.002-1.036); Urobilinogen 0.2 mg/dL (0.2-1.0); pH, Urine 7.5 (5.0-9.0)
[2018-05-06 00:47] LABS: Bacteria/HPF None Seen HPF (None Seen); Hyaline Casts/LPF 0-3 HYALINE CAST LPF (0-3 Hyaline); RBC/HPF 0-3 HPF (0-3); Squamous Epithelial None Seen HPF (0-3); WBC/HPF None Seen HPF (0-3)
[2018-05-06 08:21] VITALS: TEMP 97.8
[2018-05-06] MEDS: Calcium Carbonate + Vit D 1 TAB PO SCH (09:24)
[2018-05-06] MEDS: Citalopram 20 MG TAB PO SCH (09:24)
[2018-05-06] MEDS: Fludrocortisone Acetate 0.1 MG TAB PO SCH (09:24)
[2018-05-06] MEDS: Midodrine HCl 5 MG TAB PO SCH (09:24)
[2018-05-06] MEDS: Magnesium Oxide 400 MG TAB PO SCH (09:24)
[2018-05-06 11:36] VITALS: BP 186/95
--- NOTE | 2018-05-06 12:38 | PDOC.CTH ---
<Daisy Brewster - Last Filed: 05/06/18 12:39> Cardiology Progress Note - Subjective EP progress note: Overall resting better and beginning for feel stronger each day. Shecontinues to have heart racing when OOB but less dizziness with activity. No new cardiac concerns or complaints. - ROS lightheadedness (mild and less than yesterday) - Objective Vital Signs Temp Pulse Pulse Pulse Pulse Pulse Resp 05/06/18 10:15 93 117 H 137 H 160 H 05/06/18 08:11 81 05/06/18 08:00 97.8 F 86 18 05/06/18 07:35 97.8 F 86 18 BP BP BP BP BP Pulse Ox 05/06/18 10:15 186/95 H 181/102 H 163/90 H 136/78 05/06/18 08:11 137/84 05/06/18 08:00 97 05/06/18 07:35 179/84 H 97 Admit Weight 146 lb 9.6 oz Weight 144 lb 6.444 oz 05/05/18 05/06/18 05/07/18 06:59 06:59 06:59 Intake Total 1500 500 Output Total 1350 Balance 1500 -850 - Physical Examination General/Neuro: alert & oriented x3, NAD Neck: no JVD present Lungs: unlabored respirations Heart: RRR Abdomen: NT/ND, soft - Telemetry Telemetry Rhythm: NSR with occasional SVT - Labs Result Diagrams: 05/01/18 08:17 05/01/18 08:17 Troponin/CKMB CK-MB (CK-2) 1.1 ng/mL (0-6.6) 04/29/18 20:08 Troponin I Less than 0.010 ng/mL (< 0.028) 04/29/18 20:08 - Assessment/Plan 1. POTS- HR went from 93 supine to 160 standing, sustaining 85-100 while resting. 2. Orthostatic hypotension, mostly resolved on midodrine and florinef with reduced dose of venlafexine 3. Hyperthyroidism 4. Depression Continue to wear zachery hose and abd binder while OOB. Promote staying hydrated with adequate salt intake. Continue to check orthostatic BPs daily. Adding low dose digoxin for improved rate control. <Jack Feliz - Last Filed: 05/06/18 15:02> Cardiology Progress Note - Objective Vital Signs Temp Pulse Pulse Pulse Pulse Pulse Resp 05/06/18 10:15 93 117 H 137 H 160 H 05/06/18 08:11 81 05/06/18 08:00 97.8 F 86 18 05/06/18 07:35 97.8 F 86 18 BP BP BP BP BP Pulse Ox 05/06/18 10:15 186/95 H 181/102 H 163/90 H 136/78 05/06/18 08:11 137/84 05/06/18 08:00 97 05/06/18 07:35 179/84 H 97 Admit Weight 146 lb 9.6 oz Weight 144 lb 6.444 oz 05/05/18 05/06/18 05/07/18 06:59 06:59 06:59 Intake Total 1500 500 Output Total 1350 Balance 1500 -850 - Labs Result Diagrams: 05/01/18 08:17 05/01/18 08:17 Troponin/CKMB CK-MB (CK-2) 1.1 ng/mL (0-6.6) 04/29/18 20:08 Troponin I Less than 0.010 ng/mL (< 0.028) 04/29/18 20:08 Attending Addendum - Attending Addendum Date/Time: 05/06/18 1501 I personally evaluated the patient and discussed the management with Ms Brewster. I agree with the History, Examination, Assessment and Plan documented above with any addition or exceptions noted below.
[2018-05-06] MEDS ORDERED: Digoxin 0.125 MG TAB PO SCH (12:45)
[2018-05-07] MEDS ORDERED: Digoxin 0.125 MG TAB PO SCH (09:00)
== END 2018-05-06 19:00 | disposition home or self-care (01) | DRG 312 ==
LOC: ERS 19:35 → OBSVTOIN 22:34 → 2SW 22:34 → 2NO 05-02 18:30
PROVIDERS: ADMIT Specialist; ATTEND Specialist
DX: I95.2 Hypotension due to drugs (principal); T43.215A Adverse effect of selective serotonin and norepinephrine reuptake inhibitors, initial encounter; I10 Essential (primary) hypertension; F32.9 Major depressive disorder, single episode, unspecified; R00.0 Tachycardia, unspecified; E20.9 Hypoparathyroidism, unspecified; Y92.9 Unspecified place or not applicable; Z79.899 Other long term (current) drug therapy; Z82.49 Family history of ischemic heart disease and other diseases of the circulatory system
CPT/HCPCS: 36415; 70450; 70551; 71045; 71275; 80048; 80053; 81001; 82306; 82533; 82553; 83690; 83735; 83970; 84100; 84439; 84443; 84484; 84630; 85025; 85379; 90471; 90670; 93005; 93306; 96360; A4216; G0009; G8978-GP-CJ; G8979-GP-CH; G8987-GO-CI; G8988-GO-CI; G8989-GO-CI

== ENCOUNTER 2018-10-28 15:19 | Observation (INO) | payer MEDICARE ==
[2018-10-28 16:08] LABS: #Basophils 0.1 thou/uL (0.0-0.2); #Eosinphils 0.1 thou/uL (0.0-0.7); #Lymphocytes 1.8 thou/uL (1.20-3.40); #Monocytes 0.8 thou/uL (0.11-0.59); #Neutrophils 9.3 thou/uL (1.40-6.50); %Basophils 1.2 % (0.0-1.0); %Eosinophils 0.9 % (0.0-10.0); %Lymphocytes 14.6 % (21.0-51.0); %Monocytes 6.2 % (0.0-10.0); %Neutrophils 77.1 % (42.0-75.0); Hemoglobin 14.4 g/dL (12.0-16.0); Mean Corpuscular HGB CONC 33.7 g/dL (32.0-36.0); Mean Corpuscular Hemoglobin 30.5 pg (27.0-31.0); Mean Corpuscular Volume 90.4 fL (78.0-98.0); Mean Platelet Volume 6.3 fL (7.4-10.4); Platelet Count 350 thou/uL (130-400); RBC Distribution Width 13.4 % (11.5-14.5); Red Blood Cell (RBC) Count 4.72 mill/uL (4.20-5.40); White Blood Cell (WBC) Count 12.1 thou/uL (4.8-10.8)
[2018-10-28 16:31] LABS: ALT (SGPT) 15 U/L (8-55); AST (SGOT) 20 U/L (5-34); Albumin 4.1 g/dL (3.4-4.8); Alkaline Phosphatase 85 U/L (40-150); Anion Gap 14 mmol/L (10-20); BUN (Urea Nitrogen) 21 mg/dL (9.8-20.1); Bilirubin, Total 0.4 mg/dL (0.2-1.2); Calc. Creatinine Clearance 0 mL/min (70-130); Carbon Dioxide 22 mmol/L (23-31); Chloride 105 mmol/L (98-107); Estimated GFR-MDRD 26; Globulin 2.9 g/dL (2.4-3.5); Glucose 132 mg/dL (83-110); Potassium 4.2 mmol/L (3.5-5.1); Sodium 137 mmol/L (136-145)
[2018-10-28 17:41] LABS: CKMB 1.1 ng/mL (0-6.6)
--- NOTE | 2018-10-28 18:18 | RAD ---
FRONTAL VIEW CHEST: 10/28/18 COMPARISON: 04/29/18 INDICATION: Emergency exam. Weakness, hypotension. FINDINGS: The cardiac silhouette is stable. There is vascular calcification. The lungs are mildly hyperinflated without consolidation, or effusion. IMPRESSION: Stable chest. POS: [facility]
[2018-10-28 18:35] LABS: Bilirubin Negative (Negative); Blood, Urine Negative (Negative); Clarity CLEAR (Clear); Glucose, Urine (Dipstick) Negative (Negative); Leukocyte Negative (Negative); Nitrite Negative (Negative); Protein, Urine (Dipstick) Negative (Neg-Trace); Specific Gravity, Urine 1.012 (1.002-1.036); Urobilinogen 0.2 mg/dL (0.2-1.0); pH, Urine 7.5 (5.0-9.0)
[2018-10-28 19:36] LABS: Troponin I Less than 0.010 ng/mL (< 0.028)
[2018-10-28] MEDS ORDERED: Ondansetron PF 4 MG/2 ML Vial IVP PRN (20:49)
[2018-10-28] MEDS ORDERED: Ondansetron ODT 4 MG TAB SL PRN (20:49)
[2018-10-28] MEDS ORDERED: Acetaminophen 325 MG TAB PO PRN (20:49)
[2018-10-28 21:11] VITALS: BMI 26.9
[2018-10-28] MEDS: Sodium Chloride 0.9% 1,000 ML IV SCH (21:45)
[2018-10-28] MEDS ORDERED: busPIRone HCl 10 MG TAB PO SCH (22:15)
[2018-10-28] MEDS ORDERED: Magnesium Oxide 400 MG TAB PO SCH (22:15)
[2018-10-28] MEDS ORDERED: Calcium Carbonate + Vit D 1 TAB PO SCH (22:15)
[2018-10-28] MEDS ORDERED: clonazePAM 1 MG TAB PO SCH (22:15)
[2018-10-28 22:25] LABS: Troponin I Less than 0.010 ng/mL (< 0.028)
[2018-10-29] MEDS: Levothyroxine Sodium 100 MCG TAB PO SCH (04:57)
[2018-10-29] MEDS: Sodium Chloride 0.9% 1,000 ML IV SCH ×3 (06:52→23:01)
[2018-10-29] MEDS ORDERED: Acetaminophen 325 MG TAB PO PRN (09:07)
[2018-10-29] MEDS ORDERED: Ondansetron PF 4 MG/2 ML Vial IVP PRN (09:07)
[2018-10-29] MEDS ORDERED: Aspirin 81 mg Enteric Coated Tablet PO SCH (09:15)
[2018-10-29] MEDS ORDERED: Regadenoson 0.4 MG/5 ML SYRINGE ONE (09:21)
[2018-10-29 09:35] LABS: #Basophils 0.1 thou/uL (0.0-0.2); #Eosinphils 0.2 thou/uL (0.0-0.7); #Lymphocytes 2.9 thou/uL (1.20-3.40); #Monocytes 0.7 thou/uL (0.11-0.59); #Neutrophils 4.5 thou/uL (1.40-6.50); %Basophils 1.1 % (0.0-1.0); %Eosinophils 2.9 % (0.0-10.0); %Lymphocytes 34.2 % (21.0-51.0); %Monocytes 7.9 % (0.0-10.0); %Neutrophils 53.9 % (42.0-75.0); Hemoglobin 12.3 g/dL (12.0-16.0); Mean Corpuscular HGB CONC 33.7 g/dL (32.0-36.0); Mean Corpuscular Hemoglobin 30.3 pg (27.0-31.0); Mean Platelet Volume 6.4 fL (7.4-10.4); Platelet Count 264 thou/uL (130-400); RBC Distribution Width 13.3 % (11.5-14.5); Red Blood Cell (RBC) Count 4.05 mill/uL (4.20-5.40); White Blood Cell (WBC) Count 8.4 thou/uL (4.8-10.8)
[2018-10-29 09:43] LABS: Hemoglobin A1c 5.1 % (4.0-6.0)
[2018-10-29 09:55] LABS: Anion Gap 11 mmol/L (10-20); BUN (Urea Nitrogen) 18 mg/dL (9.8-20.1); Calc. Creatinine Clearance 56 mL/min (70-130); Calcium 8.1 mg/dL (7.8-10.44); Carbon Dioxide 23 mmol/L (23-31); Chloride 110 mmol/L (98-107); Cholesterol 198 mg/dl (< 200 Desired); Estimated GFR-MDRD 54; Glucose 87 mg/dL (83-110); HDL Cholesterol 50 mg/dL (>60 Neg Risk); LDL Cholesterol, Calculated 129 mg/dL; Potassium 4.1 mmol/L (3.5-5.1); Sodium 140 mmol/L (136-145); Triglycerides 93 mg/dL (Less than 150)
[2018-10-29] MEDS ORDERED: cloNIDine 0.1 MG TAB PO PRN (11:10)
[2018-10-29] MEDS: Citalopram 20 MG TAB PO SCH (14:28)
[2018-10-29] MEDS: Magnesium Oxide 400 MG TAB PO SCH ×2 (14:28→20:09)
[2018-10-29] MEDS: Calcium Carbonate + Vit D 1 TAB PO SCH ×3 (14:29→20:10)
--- NOTE | 2018-10-29 14:57 | HP ---
CHIEF COMPLAINT: Dizziness and weakness. HISTORY OF PRESENT ILLNESS: The patient is a 72-year-old female who has had ongoing weakness from several months. Two days prior to coming to the emergency room, she was actually in a food market where she became so weak, she had to lay on the floor to get her strength back before she could walk out of the store. She has not taken her thyroid medicine in a week, but does not think that is the cause because she never feels anything when she takes her thyroid medicine, and has gone a long periods of time without it in the past and never felt anything. She was hospitalized for similar instant this last summer in 2017, whereby orthostatic hypotension was noted to be severe and the exact cause of this we could not determine. She was sent home on medication to raise her blood pressure and eventually she stopped that medication. She states her weakness is causing her to fall. She has nausea with it and occasionally vomits. She also has lightheadedness with the weakness during this time as well. An echocardiogram was performed in April of this last year, it was unremarkable. She has a long history of insomnia and treatment resistant depression. She is not currently in any pain. During her workup here in the emergency room, it was noted that she has some acute kidney injury and her weakness may be associated with cardiac etiology and some of her troponins are mildly elevated. For that reason, she was put under observation to run her cardiac enzymes as well as evaluate her heart and check for orthostatic measurements. PAST MEDICAL HISTORY: Also includes as mentioned above; hypothyroidism, major depression treatment resistant, long-term constipation, general medical noncompliance, chronic insomnia. She did have a sleep study done in 2016, but it failed to show any abnormalities. PAST SURGICAL HISTORY: Includes thyroidectomy. Surgical repair of a left ankle fracture in October of 2017. PAST PSYCHIATRIC HISTORY: Severe depression and anxiety. She has had suicide ideations in the past, but never has had an attempt. SOCIAL HISTORY: Currently , but lives with her out of convenience. Denies alcohol or drug abuse. Has never smoked that I am aware of. ALLERGIES: SHE HAS ABNORMAL SIDE EFFECTS TO PSEUDOEPHEDRINE. MEDICATIONS: On admission; 1. Levothyroxine 100 mcg daily. 2. Calcium and magnesium [id number]. 3. Benadryl 25 mg at bedtime. 4. Buspirone 30 mg b.i.d. 5. Effexor 150 mg two tabs daily. 6. Clonazepam 1 mg two at bedtime. REVIEW OF SYSTEMS: CONSTITUTIONAL: She feels weak and fatigued all the time. Denies chills or fever. She has had some nausea and vomiting and constantly feels lethargic. HEENT: Denies any blurred vision. Has no sores in her ears, nose, or mouth. No drainage. CHEST: Denies cough, but does occasionally have shortness of breath. CARDIOVASCULAR: Denies chest pain or palpitations. ABDOMEN: Admits to recurrent nausea with episodes of weakness that sometimes end up with emesis. She denies constipation currently. Denies diarrhea. : Denies painful urination or blood in urine or stool. MUSCULOSKELETAL: Has general muscle weakness, but no new pain, swelling, or joint difficulties. SKIN: No new rashes or lesions. NEUROLOGICAL: Has a lot of headaches, but denies any paresthesias, hypesthesias. ENDOCRINE: No new areas of swelling, polydipsia, or polyuria. PSYCHIATRIC: She is maintaining her baseline of depression and anxiety. PHYSICAL EXAMINATION: VITAL SIGNS: Blood pressure 93/62, pulse 108, respirations 20, temperature 97.7. Pain scale 0/10. O2 saturation 97% on room air. GENERAL: This is an elderly female, alert, oriented, and cooperative. HEENT: Normocephalic and atraumatic. Pupils are equal, round, and reactive to light. Extraocular muscles are intact. Arcus senilis bilaterally. NECK: Supple. Trachea midline. No mass. CHEST: Good breath sounds bilaterally. BREASTS: Deferred. HEART: Regular rate and rhythm. ABDOMEN: Soft, nontender without organomegaly. : Deferred. BACK: Without unusual findings. Normal range of motion. EXTREMITIES: Upper and lower extremities with normal range of motion. No clubbing, cyanosis, or edema. SKIN: Without acute rashes or lesions. Turgor is normal. NEUROLOGICAL: Shows cranial nerves intact. Mental status at baseline. Mild depression. Cerebellar function is intact. Sensory exam is intact. LYMPHATICS: Reveal no nodules or edema. LABORATORY DATA: On admission showed WBCs 12.1, hemoglobin 14.14, hematocrit 42.7. Sodium 137, potassium 4.2, chloride 105, CO2 22, BUN 21, creatinine 1.88, GFR 26 , glucose 132, calcium 9.0. Liver functions normal. Troponin is indeterminate at 0.056 and TSH is at 17.4. UA is entirely clear. ASSESSMENT: 1. Weakness and orthostatic hypotension, etiology undetermined. 2. Indeterminate troponin. 3. Hypothyroidism, noncompliant with medication. PLAN: Will be observation to run serial troponins, then cardiac stress test, and following orthostatic readings possibly restarting medicines or raise her blood pressure. Job ID: [id number] MTDD
--- NOTE | 2018-10-29 15:55 | NM ---
NUCLEAR MEDICINE CARDIAC STRESS TEST WITH EJECTION FRACTION: HISTORY: Chest pain. Acute kidney injury. COMPARISON: None. TECHNIQUE: Stress and rest was performed after the intravenous administration of 27 and 9 mCi technetium-99m ses tamibi. FINDINGS: There is adequate left ventricular uptake of radiotracer. No scar or ischemia. Normal wall motion. No rmal ejection fraction of 79%. IMPRESSION: Normal exam. POS: [facility]
[2018-10-29] MEDS ORDERED: clonazePAM 1 MG TAB PO SCH ×2 (21:00)
[2018-10-29] MEDS ORDERED: busPIRone HCl 10 MG TAB PO SCH (21:00)
[2018-10-30] MEDS: Levothyroxine Sodium 100 MCG TAB PO SCH (05:13)
[2018-10-30 06:54] LABS: #Basophils 0.1 thou/uL (0.0-0.2); #Eosinphils 0.3 thou/uL (0.0-0.7); #Lymphocytes 2.7 thou/uL (1.20-3.40); #Monocytes 0.5 thou/uL (0.11-0.59); #Neutrophils 3.3 thou/uL (1.40-6.50); %Basophils 1.3 % (0.0-1.0); %Eosinophils 4.3 % (0.0-10.0); %Lymphocytes 39.1 % (21.0-51.0); %Monocytes 7.7 % (0.0-10.0); %Neutrophils 47.6 % (42.0-75.0); Hemoglobin 11.6 g/dL (12.0-16.0); Mean Corpuscular HGB CONC 33.6 g/dL (32.0-36.0); Mean Corpuscular Hemoglobin 30.6 pg (27.0-31.0); Mean Corpuscular Volume 91.1 fL (78.0-98.0); Mean Platelet Volume 6.4 fL (7.4-10.4); Platelet Count 259 thou/uL (130-400); RBC Distribution Width 13.2 % (11.5-14.5); Red Blood Cell (RBC) Count 3.78 mill/uL (4.20-5.40); White Blood Cell (WBC) Count 6.9 thou/uL (4.8-10.8)
[2018-10-30 07:18] LABS: Anion Gap 10 mmol/L (10-20); BUN (Urea Nitrogen) 15 mg/dL (9.8-20.1); Calc. Creatinine Clearance 60 mL/min (70-130); Calcium 8.2 mg/dL (7.8-10.44); Carbon Dioxide 25 mmol/L (23-31); Chloride 108 mmol/L (98-107); Estimated GFR-MDRD 58; Glucose 86 mg/dL (83-110); Potassium 4.2 mmol/L (3.5-5.1); Sodium 139 mmol/L (136-145)
[2018-10-30] MEDS ORDERED: Ramipril 5 MG CAP PO SCH (09:00)
[2018-10-30] MEDS: Calcium Carbonate + Vit D 1 TAB PO SCH (09:31)
[2018-10-30] MEDS: Citalopram 20 MG TAB PO SCH (09:31)
[2018-10-30] MEDS: Magnesium Oxide 400 MG TAB PO SCH (09:31)
[2018-10-30 12:28] VITALS: BP 131/81; TEMP 98.1
[2018-10-30] MEDS: Sodium Chloride 0.9% 1,000 ML IV SCH (12:44)
== END 2018-10-30 14:10 | disposition home or self-care (01) ==
LOC: ERS 15:19 → 2SW 18:02
PROVIDERS: ADMIT Specialist; ATTEND Specialist
DX: I95.1 Orthostatic hypotension (principal); G47.00 Insomnia, unspecified; E03.9 Hypothyroidism, unspecified; F32.9 Major depressive disorder, single episode, unspecified; F41.9 Anxiety disorder, unspecified; Z90.89 Acquired absence of other organs; Z88.8 Allergy status to other drugs, medicaments and biological substances; Z79.899 Other long term (current) drug therapy; Z98.890 Other specified postprocedural states
CPT/HCPCS: 71045; 78452; 80048 ×2; 80061; 81003; 82553; 83036; 84484 ×2; 85025 ×2; 87086; 93005; 93017; 96360; 96361 ×3; 99285; A9500; G0378 ×2; 36415; 80053; 84443; J2785